=== PATIENT | female | born 1965 | race Caucasian/White ===

== ENCOUNTER → 2022-10-13 | Outpatient (CLI) | payer BC | END | disposition home or self-care (01) | LOC: LAB 13:27 → LAB SHORT 13:27 | DX: E53.8 Deficiency of other specified B group vitamins (principal) | CPT/HCPCS: 82607; 82746 ==

== ENCOUNTER 2023-04-28 07:25 | Day surgery (SDC) | payer BC ==
[~2023-04-28] VITALS: Ht 167.6 cm; Wt 76.2 kg
[2023-04-28] MEDS ORDERED: Acerola C500 MG PO (07:36)
[2023-04-28] MEDS ORDERED: FISH OIL 1,2001 EAC7 PO (07:36)
[2023-04-28] MEDS ORDERED: ERGO400 PO (07:36)
[2023-04-28] MEDS ORDERED: DIGEST ADV LAC PO (07:37)
[2023-04-28] MEDS ORDERED: PYRI100 PO (07:37)
[2023-04-28] MEDS ORDERED: LEVSOD100 PO (07:37)
[2023-04-28 09:56] VITALS: BP 104/63
== END 2023-04-28 09:57 | disposition home or self-care (01) ==
LOC: ORSCSDS 07:25
PROVIDERS: Internal Medicine Gastroenterology
PROC: 0DB68ZX Excision of Stomach, Via Natural or Artificial Opening Endoscopic, Diagnostic (ICD-10-PCS; principal; 2023-04-28 08:45)
PROC: 0DJD8ZZ Inspection of Lower Intestinal Tract, Via Natural or Artificial Opening Endoscopic (ICD-10-PCS; principal; 2023-04-28 08:45)
PROC: 0DB98ZX Excision of Duodenum, Via Natural or Artificial Opening Endoscopic, Diagnostic (ICD-10-PCS; principal; 2023-04-28 08:45)
DX: D50.9 Iron deficiency anemia, unspecified (principal); K22.10 Ulcer of esophagus without bleeding; E03.9 Hypothyroidism, unspecified; K57.30 Diverticulosis of large intestine without perforation or abscess without bleeding; Z87.891 Personal history of nicotine dependence; Z79.899 Other long term (current) drug therapy
CPT/HCPCS: 88305; 88342; J2704; J7120